=== PATIENT | female | born 1995 | race Caucasian/White ===

== ENCOUNTER 2021-02-14 10:09 | Outpatient (CLI) | payer OTHER, SELFPAY ==
--- NOTE | ~2021-02-14 | US_ITS ---
EXAMINATION: US pelvic complete w TV DATE: 02/14/2021 10:43 INDICATION: Pelvic pressure Comparison:No prior studies for comparison. TECHNIQUE: Multiple transabdominal and endovaginal sonographic images of the pelvis performed. FINDINGS: The uterus measures 7.6 x 2.9 x 4.1 cm. The endometrial complex measures 3 mm. The right ovary measures 1.9 x 0.9 x 0.9 cm and the left ovary measures 2.2 x 1.9 x 0.7 cm. There ar e small follicles in each ovary. Normal doppler signal in both ovaries. There is no free fluid in the pelvis. There are no abnormal masses seen on either side. IMPRESSION: 1. Unremarkable pelvic ultrasound. Reviewed, dictated and finalized at location A.
== END 2021-02-14 10:10 | disposition home or self-care (01) ==
PROVIDERS: Visit Provider Nurse Practitioner
DX: R10.2 Pelvic and perineal pain (principal)
CPT/HCPCS: 76830; 76856

== ENCOUNTER 2021-10-21 11:06 | Emergency (ER) | payer OTHER, SELFPAY ==
[2021-10-21 11:12] VITALS: BP 118/84; PULSE 88; RESP 16; TEMP 36.7; O2SAT 100
--- NOTE | 2021-10-21 12:16 | ED_ITS ---
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 No fever, earache, sore throat, wheezing; no loss of taste/smell, CP, vomiting/diarrhea, rash, S OB-she had Covid illness. Symptoms are mild Related Data Home Medications Medication Instructions Recorded Confirmed drospirenone-ethinyl estradiol 1 tablet PO DAILY 10/21/21 10/21/21 Allergies Allergy/AdvReac Type Severity Reaction Status Date / Time Cat Dander Allergy Mild Itching Uncoded 10/21/21 11:14 Review of Systems Review of Systems: General/Constitutional: No weight loss,fever Eyes: N0: Redness,discharge Ears/Nose/Throat: No: Epistaxis,ear discharge Respiratory: Denies: Hemoptysis Gastrointestinal: No Vomiting, Bleeding-rectal Skin: No Lumps, eruption Neurologic: No Focal Weakness,Sz Hematologic: Denies: Petechiae/Purpura Psychiatric: No: Suicida ideationl All Other Systems: Reviewed and Negative PMFSH Comments At time of signature, agree with nursing past medical, surgical, social and family history. There is no relevant family history pertinent to the presenting complaint Exam Narrative: General Appearance: Well appearing, Well nourished EYE: PERRLA, Conjunctiva clear Ears: Auditory canal normal, TM normal Nose: Rhinorrhea, Mucousal erythema Mouth/Throat: MM moist, Uvula midline, Pharyngeal erythema Neck: Supple, No adenopathy Respiratory: No respiratory distress, Breath sounds equal, Clear to auscultation Cardiovascular: RRR, No JVD Musculoskeletal: Non tender, Normal strength Skin: Warm, Dry Neurological: A&O x3, CN II-XII intact Psychiatric: Normal mood, Normal affect Course Vital Signs Vital signs: Vital Signs Temperature 98.0 F 10/21/21 11:12 Pulse Rate 88 10/21/21 11:12 Respiratory Rate 16 10/21/21 11:12 Blood Pressure 118/84 10/21/21 11:12 Pulse Oximetry 100 10/21/21 11:12 Temperature 98.0 F 10/21/21 11:12 Pulse Rate 88 10/21/21 11:12 Respiratory Rate 16 10/21/21 11:12 Blood Pressure 118/84 10/21/21 11:12 Pulse Oximetry 100 10/21/21 11:12 Discharge Plan Discharge Clinical Impression: Sinus headache Patient Disposition: Home, Self-Care Condition: Stable Instructions: Rhinosinusitis (ED) Additional Instructions: You may try OTC preparations like Flonase, Afrin, Mucinex, antihistamines [Claritin, Maggie, etc.] Prescriptions: New azithromycin 250 mg tablet See Rx Instructions .ROUTE .COMPLEX Qty: 6 RF: 0 azelastine 137 mcg (0.1 %) aerosol,spray 137 mcg NASAL Q12H Qty: 30 RF: 0 No Action drospirenone-ethinyl estradiol 3-0.02 mg Tablet 1 tablet PO DAILY RF: 0 Follow-up/Referrals: UNKNOWN,DOCTOR [Primary Care Provider] -
[2021-10-22 20:04] LABS: SARS-CoV-2 RNA PCR Negative
== END 2021-10-21 12:35 | disposition home or self-care (01) ==
PROVIDERS: Emergency Provider Emergency Medicine
DX: R51.9 Headache, unspecified (principal); Z20.822 Contact with and (suspected) exposure to COVID-19
CPT/HCPCS: 99213; C9803; G0463; U0003; U0005